=== PATIENT | female | born 1950 | race Two or more races ===

== ENCOUNTER 2018-07-16 10:23 | Outpatient (CLI) | payer OTHER | END 2018-07-16 10:39 | disposition home or self-care (01) | LOC: NUCLEAR 10:23 | DX: I20.1 Angina pectoris with documented spasm (principal) | CPT/HCPCS: 78452; 93017; A9500; J0153 ==

== ENCOUNTER 2019-07-23 08:06 | Inpatient (IN) | payer OTHER ==
[~2019-07-23] VITALS: Ht 175.3 cm; Wt 115.7 kg
[2019-07-26] MEDS ORDERED: ENALAPRIL MALEA10 MG PO (10:41)
[2019-07-26] MEDS ORDERED: COREG PO (10:42)
[2019-07-26] MEDS ORDERED: ZOCOR PO (10:42)
[2019-07-26] MEDS ORDERED: ADULT ASPIRIN81 MG (12:23)
[2019-08-03] MEDS ORDERED: CARVEDILOL3.125 MG PO (08:44)
[2019-08-03] MEDS ORDERED: FUROSEMIDE40 MG PO (08:45)
[2019-08-03] MEDS ORDERED: ATENOLOL25 MG PO (08:45)
[2019-08-03] MEDS ORDERED: OMEPRAZOLE20 MG PO (08:45)
[2019-08-03] MEDS ORDERED: BACLOFEN10 MG PO (08:45)
[2019-08-03] MEDS ORDERED: ENALAPRIL MALEA20 MG PO (08:45)
[2019-08-03] MEDS ORDERED: SIMVASTATIN40 MG PO (08:45)
[2019-08-06] MEDS ORDERED: ELIQUIS2.5 MG PO (08:37)
[2019-08-06] MEDS ORDERED: PERCOCET 5-3251 EACH PO (08:37)
[2019-08-06] MEDS ORDERED: DUI500 PO (08:37)
== END 2019-08-06 14:28 | DRG 470 ==
LOC: O/R 07-26 10:00 → SURG 07-26 10:00 → SURH 08-03 06:30 → O/R 08-03 06:30 → SURG 08-03 09:00 → SURH 08-03 14:31
PROVIDERS: ADMIT Orthopaedic Surgery
PROC: 0MNN0ZZ Release Right Knee Bursa and Ligament, Open Approach (ICD-10-PCS; 2019-08-03)
PROC: 0SRC0J9 Replacement of Right Knee Joint with Synthetic Substitute, Cemented, Open Approach (ICD-10-PCS; principal; 2019-08-03 09:00)
DX: M17.11 Unilateral primary osteoarthritis, right knee (principal); M80.00XA Age-related osteoporosis with current pathological fracture, unspecified site, initial encounter for fracture; D62 Acute posthemorrhagic anemia; M22.11 Recurrent subluxation of patella, right knee; E66.09 Other obesity due to excess calories; Z96.651 Presence of right artificial knee joint

== ENCOUNTER 2021-07-09 08:28 | Outpatient (CLI) | payer OTHER ==
[~2021-07-09 08:28] MED LIST: ADULT ASPIRIN81 MG; ATENOLOL25 MG PO; BACLOFEN10 MG PO; CARVEDILOL3.125 MG PO; COREG PO; DUI500 PO; ELIQUIS2.5 MG PO; ENALAPRIL MALEA10 MG PO; ENALAPRIL MALEA20 MG PO; FUROSEMIDE40 MG PO; OMEPRAZOLE20 MG PO; PERCOCET 5-3251 EACH PO; SIMVASTATIN40 MG PO; ZOCOR PO
== END 2021-07-09 08:30 | disposition home or self-care (01) ==
LOC: NUCLEAR 08:28
PROVIDERS: ATTEND Internal Medicine Gastroenterology
DX: K83.8 Other specified diseases of biliary tract (principal); R10.817 Generalized abdominal tenderness
CPT/HCPCS: 78226; A9537

== ENCOUNTER 2023-06-11 07:00 | Inpatient (IN) | payer OTHER ==
[~2023-06-11] VITALS: Ht 170.2 cm; Wt 111.1 kg
[2023-06-11] MEDS ORDERED: ENALAPRIL MALEA10 MG PO (10:13)
[2023-06-17] MEDS ORDERED: FAMOTIDINE20 MG (07:50)
[2023-06-17] MEDS ORDERED: CETIRIZINE HCL10 MG (07:50)
[2023-06-17] MEDS ORDERED: ADULT ASPIRIN R81 MG (07:50)
[2023-06-17] MEDS ORDERED: LATANOPROST2.5 ML (07:50)
[2023-06-17] MEDS ORDERED: FUROSEMIDE20 MG (07:50)
[2023-06-17] MEDS ORDERED: EYE DROPS15 ML (07:51)
[2023-06-18] MEDS ORDERED: DUI500 PO (08:03)
[2023-06-18] MEDS ORDERED: PERCOCET 5-3251 EACH PO (08:03)
[2023-06-18] MEDS ORDERED: ELIQUIS2.5 MG PO (08:03)
== END 2023-06-19 20:24 | DRG 470 ==
LOC: SURG 06-17 06:10 → O/R 06-17 06:10 → SURG 06-17 07:00
PROVIDERS: ADMIT Orthopaedic Surgery; ATTEND Orthopaedic Surgery
PROC: 0SRD0J9 Replacement of Left Knee Joint with Synthetic Substitute, Cemented, Open Approach (ICD-10-PCS; principal; 2023-06-17 15:15)
DX: M17.12 Unilateral primary osteoarthritis, left knee (principal); M22.12 Recurrent subluxation of patella, left knee; E66.9 Obesity, unspecified; I10 Essential (primary) hypertension